=== PATIENT | female | born 1960 | race Caucasian/White ===

== ENCOUNTER 2016-10-14 10:17 | Outpatient (CLI) | payer BC | END 2016-10-14 10:18 | disposition home or self-care (01) | DX: Z12.31 Encounter for screening mammogram for malignant neoplasm of breast (principal) ==

== ENCOUNTER 2016-12-21 07:00 | Emergency (ER) | payer BC ==
[2016-12-21] MEDS ORDERED: ONDANSETRON 4 MG/2 ML VIAL IVP STA ×2 (07:40→10:55)
[2016-12-21] MEDS ORDERED: SODIUM CHLORIDE 0.9% 1,000 ML IV ONE (07:40)
[2016-12-21] MEDS ORDERED: diazePAM INJ 5 MG/ML SYRINGE IVP STA ×3 (07:40→10:55)
[2016-12-21] MEDS ORDERED: diazePAM INJ 5 MG/ML SYRINGE ONE ×3 (07:54→10:57)
[2016-12-21] MEDS ORDERED: ONDANSETRON 4 MG/2 ML VIAL ONE ×2 (07:55→10:58)
[2016-12-21] MEDS ORDERED: DEXAMETHASONE 10 MG/ML VIAL PO STA (09:05)
[2016-12-21] MEDS ORDERED: DEXAMETHASONE 10 MG/ML VIAL ONE ×2 (09:13→09:27)
[2016-12-21] MEDS ORDERED: CHERRY SYRUP 10 ML UDC PO ONE (09:13)
[2016-12-21] MEDS ORDERED: DEXAMETHASONE 10 MG/ML VIAL IVP STA (09:31)
[2016-12-21] MEDS ORDERED: MECLIZINE 12.5 MG TABLET PO STA (09:32)
[2016-12-21] MEDS ORDERED: MECLIZINE 12.5 MG TABLET PO ONE (10:08)
== END 2016-12-21 13:21 | disposition home or self-care (01) ==
DX: R42 Dizziness and giddiness (principal); R11.2 Nausea with vomiting, unspecified; E78.00 Pure hypercholesterolemia, unspecified; E03.9 Hypothyroidism, unspecified; I49.9 Cardiac arrhythmia, unspecified
CPT/HCPCS: 36415; 80053; 83690; 85025; 96361; 96374; 96375; 96376; 99284; A9270

== ENCOUNTER 2017-05-31 09:43 | Outpatient (CLI) | payer BC ==
--- NOTE | 2017-05-31 12:58 | XRAY Report ---
COMPLETE LUMBAR SPINE: 05/31/2017 CLINICAL INDICATION: Low back pain. FINDINGS: AP, lateral, oblique, coned-down views of the lumbar spine demonstrate mild degenerative d isc and facet disease. There is no evidence of fracture or subluxation. The bowel gas pattern is un remarkable. IMPRESSION: MILD DEGENERATIVE CHANGES. JOB #: [id number] EXT JOB #:[id number]
== END 2017-05-31 09:44 | disposition home or self-care (01) ==
LOC: DI.S 09:43
PROVIDERS: ATTEND Nurse Practitioner Family
DX: M51.36 Other intervertebral disc degeneration, lumbar region (principal)
CPT/HCPCS: 72110

== ENCOUNTER 2017-06-07 09:29 | Outpatient (CLI) | payer BC ==
--- NOTE | 2017-06-07 17:07 | XRAY Report ---
LEFT HIP AND PELVIS: 06/07/2017 FINDINGS: Pain. Frontal view of the hips and pelvis, and frog-leg lateral view of the left hip demonstrate mild osteo arthritis. There is no evidence of acute fracture. No radiopaque foreign body is seen in the soft t issues. IMPRESSION: MILD OSTEOARTHRITIS. JOB #: [id number] EXT JOB #:[id number]
== END 2017-06-07 09:30 | disposition home or self-care (01) ==
LOC: DI.S 09:29
PROVIDERS: ATTEND Nurse Practitioner Family
DX: M25.552 Pain in left hip (principal); M16.12 Unilateral primary osteoarthritis, left hip

== ENCOUNTER 2017-09-05 10:02 | Outpatient (CLI) | payer BC ==
[2017-09-05 18:38] LABS: BASOPHILS # (AUTO) 0.1 10^3/uL (0.0-0.1); BASOPHILS % (AUTO) 1.4 %; EOSINOPHILS # (AUTO) 0.2 10^3/uL (0.0-0.7); EOSINOPHILS % (AUTO) 4.3 %; HCT - HEMATOCRIT 42.7 % (37.0-47.0); HGB - HEMOGLOBIN 13.8 g/dL (12.0-16.0); LYMPHOCYTES # (AUTO) 1.5 10^3/uL (1.5-3.5); LYMPHOCYTES % (AUTO) 29.4 %; MEAN CORPUSCULAR HEMOGLOBIN 27.2 pg (27.0-31.0); MEAN CORPUSCULAR HGB CONC 32.3 g/dL (32.0-36.0); MEAN CORPUSCULAR VOLUME 84.3 fL (81.0-99.0); MEAN PLATELET VOLUME 9.2 fL (7.9-10.8); MONOCYTES # (AUTO) 0.4 10^3/uL (0.0-1.0); MONOCYTES % (AUTO) 7.7 %; NEUTROPHILS # (AUTO) 2.9 10^3/uL (1.5-6.6); NEUTROPHILS % (AUTO) 57.2 %; NUCLEATED RED BLOOD CELLS AUTO 0.1 /100WBC; RED BLOOD COUNT 5.07 10^6/uL (4.20-5.40); RED CELL DISTRIBUTION WIDTH 15.6 % (12.0-15.0); UNCORRECTED WHITE BLOOD COUNT 5.1 x10^3/uL; WHITE BLOOD COUNT 5.1 x10^3/uL (4.8-10.8)
[2017-09-05 18:43] LABS: ALBUMIN/GLOBULIN RATIO 1.4 (1.0-2.2); BILIRUBIN,TOTAL 0.6 mg/dL (0.2-1.0); BUN - BLOOD UREA NITROGEN 13 mg/dL (6-20); CALCIUM 9.3 mg/dL (8.5-10.3); CARBON DIOXIDE - CO2 27 mmol/L (21-32); CHLORIDE 106 mmol/L (101-111); CHOL/HDL RATIO 4.6 (<4.4); CHOLESTEROL 274 mg/dL; CREATININE 0.9 mg/dL (0.4-1.0); GFR - MDRD 65 (>89); GLUCOSE 93 mg/dL (70-100); HDL CHOLESTEROL 60 mg/dL; LDL/HDL RATIO 3.1 (<4.4); POTASSIUM 3.9 mmol/L (3.5-5.0); SODIUM 140 mmol/L (135-145); TOTAL PROTEIN 7.1 g/dL (6.7-8.2); TRIGLYCERIDES 144 mg/dL; VLDL CHOLESTEROL 29 mg/dL
== END 2017-09-05 10:03 ==
LOC: LAB.S 10:02
PROVIDERS: ATTEND Nurse Practitioner Family
DX: E03.9 Hypothyroidism, unspecified (principal); Z13.6 Encounter for screening for cardiovascular disorders; Z13.0 Encounter for screening for diseases of the blood and blood-forming organs and certain disorders involving the immune mechanism
CPT/HCPCS: 36415; 80053; 80061; 84443; 85025

== ENCOUNTER 2017-11-17 13:42 | Outpatient (CLI) | payer OTHER | END 2017-11-17 13:43 | disposition home or self-care (01) | LOC: LAB.F 13:42 | PROVIDERS: ATTEND Nurse Practitioner Family | DX: E03.9 Hypothyroidism, unspecified (principal) | CPT/HCPCS: 36415; 84443 ==

== ENCOUNTER 2018-04-07 13:56 | Outpatient (CLI) | payer OTHER ==
[2018-04-07 18:34] LABS: THYROID STIMULATING HORMONE 1.85 uIU/mL (0.34-5.60)
[2018-04-07 18:38] LABS: FREE T4 (FREE THYROXINE) 0.89 ng/dL (0.58-1.64)
[2018-04-08 10:46] LABS: HOMOCYSTEINE 10.2 umol/L (<10.4)
== END 2018-04-07 13:57 | disposition home or self-care (01) ==
LOC: LAB.F 13:56
PROVIDERS: ATTEND Naturopath
DX: Z13.6 Encounter for screening for cardiovascular disorders (principal); I49.9 Cardiac arrhythmia, unspecified; G44.89 Other headache syndrome; I99.8 Other disorder of circulatory system; E03.9 Hypothyroidism, unspecified
CPT/HCPCS: 36415; 81599; 83090; 84439; 84443; 84481; 84482; 86141

== ENCOUNTER 2018-05-18 10:37 | Outpatient (CLI) | payer OTHER | END 2018-05-18 10:38 | disposition home or self-care (01) | LOC: LAB.F 10:37 | PROVIDERS: ATTEND Internal Medicine | DX: E03.9 Hypothyroidism, unspecified (principal) | CPT/HCPCS: 36415; 84443 ==

== ENCOUNTER 2018-06-01 07:48 | Outpatient (CLI) | payer OTHER ==
[2018-06-01 11:06] LABS: BASOPHILS # (AUTO) 0.1 10^3/uL (0.0-0.1); BASOPHILS % (AUTO) 1.7 %; EOSINOPHILS # (AUTO) 0.2 10^3/uL (0.0-0.7); EOSINOPHILS % (AUTO) 5.4 %; HGB - HEMOGLOBIN 13.5 g/dL (12.0-16.0); LYMPHOCYTES # (AUTO) 1.7 10^3/uL (1.5-3.5); MEAN CORPUSCULAR HEMOGLOBIN 27.1 pg (27.0-31.0); MEAN CORPUSCULAR HGB CONC 32.8 g/dL (32.0-36.0); MEAN CORPUSCULAR VOLUME 82.5 fL (81.0-99.0); MEAN PLATELET VOLUME 9.6 fL (7.9-10.8); MONOCYTES # (AUTO) 0.4 10^3/uL (0.0-1.0); MONOCYTES % (AUTO) 7.6 %; NEUTROPHILS # (AUTO) 2.2 10^3/uL (1.5-6.6); NEUTROPHILS % (AUTO) 48.3 %; PLT - PLATELET COUNT 196 10^3/uL (130-450); RED CELL DISTRIBUTION WIDTH 16.6 % (12.0-15.0); WHITE BLOOD COUNT 4.6 x10^3/uL (4.8-10.8)
[2018-06-01 12:00] LABS: HB2 TOTAL 14.5 g/dL; HEMOGLOBIN A1C 0.52 g/dL; HEMOGLOBIN A1C % 5.4 % (4.6-6.2)
== END 2018-06-01 07:49 | disposition home or self-care (01) ==
LOC: LAB.F 07:48
PROVIDERS: ATTEND Nurse Practitioner Family
DX: R42 Dizziness and giddiness (principal)
CPT/HCPCS: 36415; 82728; 82947; 83036; 85025

== ENCOUNTER 2018-08-24 08:21 | Outpatient (CLI) | payer OTHER ==
[2018-08-24 11:04] LABS: ALBUMIN 3.9 g/dL (3.2-5.5); ALBUMIN/GLOBULIN RATIO 1.4 (1.0-2.2); ALKALINE PHOSPHATASE 57 IU/L (42-121); ALT ALANINE AMINOTRANSFERASE 23 IU/L (10-60); AST ASPARTATE AMINOTRANSFERASE 23 IU/L (10-42); BILIRUBIN,TOTAL 0.7 mg/dL (0.2-1.0); BUN - BLOOD UREA NITROGEN 10 mg/dL (6-20); CALCIUM 8.9 mg/dL (8.5-10.3); CARBON DIOXIDE - CO2 28 mmol/L (21-32); CHLORIDE 104 mmol/L (101-111); CHOL/HDL RATIO 4.4 (<4.4); CHOLESTEROL 215 mg/dL; CREATININE 0.9 mg/dL (0.4-1.0); GFR - MDRD 64 (>89); GLUCOSE 99 mg/dL (70-100); HDL CHOLESTEROL 49 mg/dL; LDL CHOLESTEROL,CALCULATED 132 mg/dL; LDL/HDL RATIO 2.7 (<4.4); SODIUM 139 mmol/L (135-145); TOTAL PROTEIN 6.6 g/dL (6.7-8.2); VLDL CHOLESTEROL 34 mg/dL
[2018-08-24 11:20] LABS: THYROID STIMULATING HORMONE 2.79 uIU/mL (0.34-5.60)
[2018-08-24 11:22] LABS: FREE T4 (FREE THYROXINE) 0.89 ng/dL (0.58-1.64)
== END 2018-08-24 08:22 | disposition home or self-care (01) ==
LOC: LAB.F 08:21
PROVIDERS: ATTEND Nurse Practitioner Family
DX: F41.9 Anxiety disorder, unspecified (principal); Z13.6 Encounter for screening for cardiovascular disorders; E03.9 Hypothyroidism, unspecified
CPT/HCPCS: 36415; 80053; 80061; 83721; 84439; 84443

== ENCOUNTER 2018-09-18 11:07 | Outpatient (CLI) | payer OTHER ==
--- NOTE | 2018-09-19 09:41 | Mammography Report ---
Reason: SCREENING MAMMO Procedure Date: 09/18/2018 Accession Number: [id number] / [id number] Procedure: REYNOLD - Screening Mammo w/Jeffery CPT Code: FULL RESULT: EXAM: Screening Mammo w/Jeffery DATE: 09/18/2018 11:48 AM CLINICAL HISTORY: Screening encounter. History of nulliparity. TECHNIQUE: Bilateral CC and MLO views were obtained. COMPARISON: 10/14/2016. FINDINGS: The breasts demonstrate scattered fibroglandular densities bilaterally. No suspicious masses, clustered microcalcifications, or regions of architectural distortion are identified. IMPRESSION: Benign findings RECOMMENDATION: Routine annual screening unless otherwise clinically indicated. BIRADS CATEGORY 2: Benign findings STANDARD QUALIFYING STATEMENTS: 1. This examination was not reviewed with the aid of Computer-Aided Detection (CAD). 2. A negative or benign imaging report should not preclude biopsy if clinically suspicious findings are present. 3. Dense breasts may obscure an underlying neoplasm. 4. This examination was reviewed with the aid of 3D breast imaging (tomosynthesis).
== END 2018-09-18 11:08 | disposition home or self-care (01) ==
LOC: DI 11:07
DX: Z12.31 Encounter for screening mammogram for malignant neoplasm of breast (principal)
CPT/HCPCS: 77063; 77067

== ENCOUNTER 2018-12-25 02:03 | Outpatient (CLI) | payer OTHER | END 2018-12-25 02:04 | disposition critical access hospital (66) | LOC: EMS 02:03 | PROVIDERS: ATTEND Surgery | DX: R00.2 Palpitations (principal); R42 Dizziness and giddiness | CPT/HCPCS: A0425; A0427 ==

== ENCOUNTER 2018-12-25 02:36 | Emergency (ER) | payer OTHER ==
[2018-12-25] MEDS ORDERED: METOPROLOL 5 MG/5 ML VIAL IVP STA (02:48)
[2018-12-25 03:01] LABS: BASOPHILS # (AUTO) 0.1 10^3/uL (0.0-0.1); BASOPHILS % (AUTO) 1.6 %; EOSINOPHILS # (AUTO) 0.2 10^3/uL (0.0-0.7); EOSINOPHILS % (AUTO) 3.8 %; HGB - HEMOGLOBIN 13.4 g/dL (12.0-16.0); LYMPHOCYTES # (AUTO) 1.7 10^3/uL (1.5-3.5); LYMPHOCYTES % (AUTO) 29.7 %; MEAN CORPUSCULAR HEMOGLOBIN 26.8 pg (27.0-31.0); MEAN CORPUSCULAR HGB CONC 32.6 g/dL (32.0-36.0); MEAN CORPUSCULAR VOLUME 82.4 fL (81.0-99.0); MEAN PLATELET VOLUME 8.6 fL (7.9-10.8); MONOCYTES # (AUTO) 0.4 10^3/uL (0.0-1.0); MONOCYTES % (AUTO) 6.2 %; NEUTROPHILS # (AUTO) 3.3 10^3/uL (1.5-6.6); NEUTROPHILS % (AUTO) 58.7 %; PLT - PLATELET COUNT 203 10^3/uL (130-450); RED BLOOD COUNT 5.01 10^6/uL (4.20-5.40); RED CELL DISTRIBUTION WIDTH 15.7 % (12.0-15.0); WHITE BLOOD COUNT 5.6 x10^3/uL (4.8-10.8)
[2018-12-25] MEDS ORDERED: PROPOFOL 200 MG/20 ML VIAL IVP ONE (03:05)
[2018-12-25] MEDS ORDERED: MIDAZOLAM 2 MG/2 ML VIAL ONE (03:05)
[2018-12-25] MEDS ORDERED: AMIODARONE 150 MG/100 ML 100 ML IV ONE ×2 (03:05→03:08)
[2018-12-25 03:14] LABS: ALBUMIN 3.9 g/dL (3.2-5.5); ALBUMIN/GLOBULIN RATIO 1.4 (1.0-2.2); BILIRUBIN,TOTAL 0.5 mg/dL (0.2-1.0); CALCIUM 9.2 mg/dL (8.5-10.3); CREATININE 0.7 mg/dL (0.4-1.0); TOTAL PROTEIN 6.7 g/dL (6.7-8.2)
--- NOTE | 2018-12-25 03:34 | ED Physician Documentation ---
History of Present Illness - Stated complaint Stated Complaint: PALPATATIONS - Chief complaint Chief Complaint: Cardiac - History obtained from History obtained from: Patient - History of Present Illness Timing: Prior to arrival - Additonal information Additional information: The patient is a 58-year-old female who presents with palpitations that started just prior to arrival. She reports associated lightheadedness and slight dyspnea. She denies chest pain. She has a history of paroxysmal atrial fibrillation and atrial flutter. She reports that atrial flutter has been converted in the past with amiodarone. Her previous episode of atrial fibrillation requiring electrical cardioversion. She is not currently on any antidysrhythmic therapy or anticoagulant medication. She took 1 baby aspirin prior to arrival. She denies the use of coffee, nasreen, alcohol, or other drugs. Review of Systems Constitutional: reports: Other (Lightheaded and dizzy.). denies: Fever Eyes: denies: Decreased vision Ears: denies: Tinnitus/ringing Nose: denies: Congestion Throat: denies: Sore throat Cardiac: reports: Palpitations. denies: Chest pain / pressure Respiratory: reports: Dyspnea. denies: Cough GI: denies: Abdominal Pain, Nausea, Vomiting : denies: Dysuria Skin: denies: Rash Musculoskeletal: denies: Back pain, Extremity swelling Neurologic: denies: Focal weakness, Numbness, Headache PD PAST MEDICAL HISTORY - Past Medical History Cardiovascular: High cholesterol, Arrhythmia, Other Respiratory: None Endocrine/Autoimmune: HyPOthyroidism GI: None LEGAL DOCUMENT SPECIALIST: None : None HEENT: None Psych: None Musculoskeletal: None Derm: Eczema - Past Surgical History Past Surgical History: Yes HEENT: Tonsil/Adenoidectomy - Present Medications Home Medications: Ambulatory Orders Medication Instructions Recorded Confirmed Levothyroxine [Synthroid] 75 07/27/13 07/27/13 Dexamethasone [Decadron] 4 mg PO DAILY #5 tablet 12/21/16 Meclizine [Antivert] 25 mg PO Q6H PRN #30 tablet 12/21/16 Ondansetron Odt [Zofran] 4 mg TL Q6H PRN #15 tablet 12/21/16 diazePAM [Diazepam] 5 mg PO TID PRN #20 tablet 12/21/16 - Allergies Allergies/Adverse Reactions: Allergies Allergy/AdvReac Type Severity Reaction Status Date / Time No Known Drug Allergies Allergy Verified 12/21/16 07:13 - Social History Does the pt smoke?: No Smoking Status: Never smoker Does the pt drink ETOH?: No Does the pt have substance abuse?: No - Immunizations Immunizations are current?: Yes - POLST Patient has POLST: No PD ED PE NORMAL - Vitals Vital signs reviewed: Yes (tachycardic) - General General: Alert and oriented X 3, Well developed/nourished - HEENT HEENT: Atraumatic, EOMI, Pharynx benign - Neck Neck: No adenopathy, No JVD - Cardiac Cardiac: No murmur, Other (Rapid rate, regular rhythm.) - Respiratory Respiratory: Clear bilaterally - Abdomen Abdomen: Soft, Non tender - Back Back: No CVA TTP - Derm Derm: No rash - Extremities Extremities: No edema, No calf tenderness / cord - Neuro Neuro: Alert and oriented X 3, No motor deficit, Normal speech Results - Vitals Vitals: Oxygen O2 Source Room air Oxygen Flow Rate 10 - EKG (time done) 02:40 Rate: Rate (enter#) (138) Rhythm: Atrial flutter (with 2:1 block) [place]: Normal Computer interpretation: Agree with computer 04:49 Rate: Rate (enter#) (87) Rhythm: NSR [place]: Normal Intervals: Normal [place] QRS: Normal Ischemia: T wave inversion (in lead III, with T-wave flattening in aVF.) Compare to prior EKG: Changed from prior EKG (No longer in atrial flutter.) Computer interpretation: Agree with computer - Labs Labs: Laboratory Tests 12/25/18 12/25/18 12/25/18 02:54 02:54 02:54 WBC 5.6 RBC 5.01 Hgb 13.4 Hct 41.3 MCV 82.4 MCH 26.8 L MCHC 32.6 RDW 15.7 H Plt Count 203 MPV 8.6 Neut # (Auto) 3.3 Lymph # (Auto) 1.7 [place] # (Auto) 0.4 Eos # (Auto) 0.2 Baso # (Auto) 0.1 Absolute Nucleated RBC 0.00 Nucleated RBC % 0.0 Sodium 139 Potassium 3.4 L Chloride 106 Carbon Dioxide 22 Anion Gap 11.0 BUN 16 Creatinine 0.7 Estimated GFR (MDRD) 86 L Glucose 113 H Calcium 9.2 Total Bilirubin 0.5 AST 79 H ALT 72 H Alkaline Phosphatase 81 Troponin I < 0.04 Total Protein 6.7 Albumin 3.9 Globulin 2.8 Albumin/Globulin Ratio 1.4 Lipase 32 Procedures - Cardioversion 1 Time of attempt: 04:42 (Duration of procedural sedation was approximately 15 minutes.) Indication: Tachyarrhythmia Risks, benefits, alternatives explained to: Pt Prep: IV, O2, radiation monitor, Pulse ox, Airway equip Meds: Propofol (60 mg), Versed (1 mg) CS via: Pads, Anterolateral Sync: Biphasic, 50j Post cardioversion rhythm: NSR Performed by: ED MD MEDICAL DECISION MAKING - ED course Complexity details: reviewed results, re-evaluated patient, considered differential, d/w patient, d/w family ED course: The patient's presentation is significant for atrial flutter, initially with 2:1 block. Shortly after arrival ventricular response became one-to-one, with a ventricular rate of 240. Paddles were placed on the patient's chest immediately upon arrival. Metoprolol 5 mg is administered IV, without response. Amiodarone 150 mg is administered IV. Her atrial flutter return to 2:1 block, but did not convert. Under procedural sedation, she was cardioverted at 70 J. Cardioversion was successful on the first attempt, and she remained in normal sinus rhythm thereafter. After a period of observation, and normal laboratory results, she is being discharged with instructions to follow up with her group care worker. I discussed with her and her potentially worrisome signs or symptoms that should prompt reevaluation in the emergency department. Departure - Departure Disposition: 01 Home, Self Care Clinical Impression: Atrial flutter with rapid ventricular response Condition: Stable Instructions: ED Paroxysmal Atrial Flutter Follow-Up: Anahi Koroma ARNP [Credentialed Staff Provider] - Comments: Follow-up with your primary physician or group care worker. Call to schedule an appointment. Return to the emergency department if you develop recurrent tachydysrhythmia, or otherwise worsening symptoms. Forms: Activity restrictions Discharge Date/Time: 12/25/18 05:40
[2018-12-25] MEDS ORDERED: PROPOFOL 200 MG/20 ML VIAL IVP STA (04:16)
[2018-12-25] MEDS ORDERED: MIDAZOLAM 2 MG/2 ML VIAL IVP STA (04:17)
[2018-12-25 05:33] VITALS: BP 112/79
== END 2018-12-25 05:40 | disposition home or self-care (01) ==
LOC: EDUNIT# → ED 02:36
DX: I48.92 Unspecified atrial flutter (principal)
CPT/HCPCS: 36415; 80053; 83690; 84484; 85025; 92960; 93005; 94770; 96374; 96375; 99152; 99284; J0282

== ENCOUNTER 2019-03-26 08:00 | Outpatient (CLI) | payer OTHER ==
[2019-03-26 17:11] LABS: MEAN CORPUSCULAR HEMOGLOBIN 26.4 pg (27.0-31.0); MEAN CORPUSCULAR VOLUME 82.7 fL (81.0-99.0); MEAN PLATELET VOLUME 9.5 fL (7.9-10.8); RED BLOOD COUNT 4.9 10^6/uL (4.20-5.40); RED CELL DISTRIBUTION WIDTH 15.6 % (12.0-15.0)
[2019-03-26 17:15] LABS: CALCIUM 9.2 mg/dL (8.5-10.3); CREATININE 0.8 mg/dL (0.4-1.0)
== END 2019-03-26 23:59 | disposition home or self-care (01) ==
LOC: LAB.S 08:00
PROVIDERS: ATTEND Internal Medicine Clinical Cardiac Electrophysiology
DX: I48.92 Unspecified atrial flutter (principal)
CPT/HCPCS: 36415; 80048; 85027

== ENCOUNTER 2019-05-04 08:45 | Outpatient (CLI) | payer OTHER ==
[2019-05-04 18:33] LABS: BASOPHILS # (AUTO) 0.1 10^3/uL (0.0-0.1); BASOPHILS % (AUTO) 1.6 %; EOSINOPHILS # (AUTO) 0.3 10^3/uL (0.0-0.7); EOSINOPHILS % (AUTO) 7.8 %; LYMPHOCYTES # (AUTO) 1.5 10^3/uL (1.5-3.5); LYMPHOCYTES % (AUTO) 33.8 %; MEAN CORPUSCULAR HEMOGLOBIN 25.8 pg (27.0-31.0); MEAN CORPUSCULAR HGB CONC 29.9 g/dL (32.0-36.0); MEAN CORPUSCULAR VOLUME 86.5 fL (81.0-99.0); MEAN PLATELET VOLUME 11.3 fL (7.9-10.8); MONOCYTES # (AUTO) 0.3 10^3/uL (0.0-1.0); MONOCYTES % (AUTO) 7.4 %; NEUTROPHILS # (AUTO) 2.1 10^3/uL (1.5-6.6); NEUTROPHILS % (AUTO) 49.2 %; PLT - PLATELET COUNT 201 10^3/uL (130-450); RED BLOOD COUNT 5.03 10^6/uL (4.20-5.40); RED CELL DISTRIBUTION WIDTH 16.1 % (12.0-15.0); WHITE BLOOD COUNT 4.4 x10^3/uL (4.8-10.8)
[2019-05-04 19:08] LABS: ALBUMIN 4.1 g/dL (3.2-5.5); ALBUMIN/GLOBULIN RATIO 1.5 (1.0-2.2); BILIRUBIN,TOTAL 0.7 mg/dL (0.2-1.0); CALCIUM 9.2 mg/dL (8.5-10.3); CREATININE 0.8 mg/dL (0.4-1.0); TOTAL PROTEIN 6.8 g/dL (6.7-8.2)
[2019-05-04 19:11] LABS: THYROID STIMULATING HORMONE 2.88 uIU/mL (0.34-5.60)
[2019-05-04 19:13] LABS: FREE T4 (FREE THYROXINE) 0.9 ng/dL (0.58-1.64)
[2019-05-04 19:58] LABS: HB2 TOTAL 13.9 g/dL; HEMOGLOBIN A1C 0.53 g/dL; HEMOGLOBIN A1C % 5.6 % (4.6-6.2)
== END 2019-05-04 08:46 | disposition home or self-care (01) ==
LOC: LAB.S 08:45
PROVIDERS: ATTEND Naturopath
DX: R73.01 Impaired fasting glucose (principal); E03.9 Hypothyroidism, unspecified
CPT/HCPCS: 36415; 80053; 81599; 82627; 83036; 83525; 84439; 84443; 84481; 85025

== ENCOUNTER 2019-11-23 08:38 | Outpatient (CLI) | payer OTHER ==
--- NOTE | 2019-11-27 10:34 | Mammography Report ---
Reason: ROUTINE MAMMO Procedure Date: 11/23/2019 Accession Number: [id number] / [id number] Procedure: REYNOLD - Screening Mammo w/Jeffery CPT Code: Final Report FULL RESULT: EXAM: Screening Mammo w/Jeffery DATE: 11/23/2019 9:13 AM CLINICAL HISTORY: Screening encounter. History of nulliparity. TECHNIQUE: (B) - Bilateral CC and MLO views were obtained. COMPARISON: 09/18/2018 and 10/14/2016. PARENCHYMAL PATTERN: (A) - The breast(s) demonstrate(s) scattered fibroglandular densities. FINDINGS: There are no suspicious masses, calcifications, or areas of distortion. IMPRESSION: Negative examination. BI-RADS category 1. RECOMMENDATION: (ANNUAL) - Recommend routine annual screening mammography. BI-RADS CATEGORY: (1) - Negative. STANDARD QUALIFYING STATEMENTS: 1. This examination was not reviewed with the aid of Computer-Aided Detection (CAD). 2. A negative or benign imaging report should not preclude biopsy if clinically suspicious findings are present. 3. Dense breasts may obscure an underlying neoplasm. 4. This examination was reviewed with the aid of 3D breast imaging (tomosynthesis).
== END 2019-11-23 08:39 | disposition home or self-care (01) ==
LOC: DI 08:38
PROVIDERS: ATTEND Physician Assistant Medical
DX: Z12.31 Encounter for screening mammogram for malignant neoplasm of breast (principal)
CPT/HCPCS: 77063; 77067

== ENCOUNTER 2019-11-23 08:41 | Outpatient (CLI) | payer OTHER ==
--- NOTE | 2019-11-27 12:26 | DEXA Report ---
Reason: POSTMENOPAUSAL Procedure Date: 11/23/2019 Accession Number: [id number] / [id number] Procedure: DEX - Dexa Spine and/or Hip CPT Code: Final Report FULL RESULT: EXAM: Dexa Spine and/or Hip DATE: 11/23/2019 9:26 AM CLINICAL HISTORY: POSTMENOPAUSAL TECHNIQUE: Dual energy x-ray absorptiometry (DXA) was performed on a [employer]ue[employer] System. Regions measured are the AP Spine, femoral neck, and if needed forearm. COMPARISON: None. In accordance with the International Society for Clinical Densitometry (ISCD) guidelines, data from previous exams may be reanalyzed using current recommendations and techniques. This is done to allow a more accurate basis for comparison with the current study. FINDINGS: The data for the lumbar spine is as follows: BMD (g/cm/cm) T-SCORE Z-SCORE REGION L1 0.789 -2.8 -2.6 L2 0.877 -2.7 -2.5 L3 0.967 -1.9 -1.8 L4 0.916 -2.4 -2.2 TOTAL 0.894 -2.4 -2.2 NOTE: All evaluable vertebrae are used for classification The data for the hip is as follows: BMD (g/cm/cm) T-SCORE Z-SCORE REGION Neck 0.734 -2.2 -1.6 TOTAL 0.810 -1.6 -1.4 NOTE: The femoral neck or total proximal femur, whichever is lowest, is used for classification. IMPRESSION: THE WHO CLASSIFICATION BASED ON THE INTERNATIONAL REFERENCE STANDARD IS OSTEOPENIA. THE FRACTURE RISK IS INCREASED. RECOMMENDATION: Patients with diagnosis of osteoporosis or osteopenia should have regular bone mineral density assessment. For those eligible for Medicare, routine testing is allowed once every 2 years. Testing frequency can be increased for patients who have rapidly progressing disease or for those who are receiving medical therapy to restore bone mass. COMMENT: World Health Organization (WHO) definitions for osteoporosis and osteopenia: NORMAL BMD: T-score at -1.0 or higher, fracture risk is low OSTEOPENIA BMD: T-score between -1.0 and -2.5, fracture risk is increased. OSTEOPOROSIS BMD: T-score at -2.5 or lower, fracture risk is high. National Osteoporosis Foundation recommends: 1. Obtain adequate dietary calcium (at least 1200 mg per day) and vitamin D (400-800 international units per day). 2. Participate, as appropriate, in regular weightbearing and muscle-strengthening exercise. 3. Avoid tobacco use and reduce alcohol and caffeine intake. 4. For more detailed information see the website at www.NOF.org.
== END 2019-11-23 08:42 | disposition home or self-care (01) ==
LOC: DI 08:41
PROVIDERS: ATTEND Physician Assistant Medical
DX: M85.89 Other specified disorders of bone density and structure, multiple sites (principal); Z78.0 Asymptomatic menopausal state
CPT/HCPCS: 77080

== ENCOUNTER 2020-04-09 13:30 | Outpatient (CLI) | payer OTHER | END 2020-04-09 23:59 | disposition home or self-care (01) | LOC: LAB 13:30 | PROVIDERS: ATTEND Registered Nurse | DX: R05 Cough (principal); Z20.828 Contact with and (suspected) exposure to other viral communicable diseases | CPT/HCPCS: 81599 ==

== ENCOUNTER 2020-08-29 10:16 | Outpatient (CLI) | payer OTHER ==
[2020-08-29 15:10] LABS: BASOPHILS # (AUTO) 0.1 10^3/uL (0.0-0.1); BASOPHILS % (AUTO) 1.5 %; EOSINOPHILS # (AUTO) 0.2 10^3/uL (0.0-0.7); EOSINOPHILS % (AUTO) 4.8 %; HGB - HEMOGLOBIN 13.7 g/dL (12.0-16.0); LYMPHOCYTES # (AUTO) 1.5 10^3/uL (1.5-3.5); MEAN CORPUSCULAR HEMOGLOBIN 26.9 pg (27.0-31.0); MEAN CORPUSCULAR HGB CONC 31.1 g/dL (32.0-36.0); MEAN CORPUSCULAR VOLUME 86.6 fL (81.0-99.0); MEAN PLATELET VOLUME 11.3 fL (7.9-10.8); MONOCYTES # (AUTO) 0.2 10^3/uL (0.0-1.0); MONOCYTES % (AUTO) 6.1 %; NEUTROPHILS % (AUTO) 50.6 %; PLT - PLATELET COUNT 215 10^3/uL (130-450); RED BLOOD COUNT 5.09 10^6/uL (4.20-5.40); WHITE BLOOD COUNT 3.9 x10^3/uL (4.8-10.8)
[2020-08-29 15:35] LABS: ALBUMIN 4.3 g/dL (3.2-5.5); ALBUMIN/GLOBULIN RATIO 1.6 (1.0-2.2); ALKALINE PHOSPHATASE 63 IU/L (42-121); ALT ALANINE AMINOTRANSFERASE 21 IU/L (10-60); AST ASPARTATE AMINOTRANSFERASE 23 IU/L (10-42); BILIRUBIN,TOTAL 0.7 mg/dL (0.2-1.0); BUN - BLOOD UREA NITROGEN 11 mg/dL (6-20); CALCIUM 9.5 mg/dL (8.5-10.3); CARBON DIOXIDE - CO2 26 mmol/L (21-32); CHLORIDE 103 mmol/L (101-111); CHOL/HDL RATIO 5.5 (<4.4); CHOLESTEROL 293 mg/dL; CREATININE 0.8 mg/dL (0.4-1.0); GLUCOSE 101 mg/dL (70-100); HDL CHOLESTEROL 53 mg/dL; LDL CHOLESTEROL,CALCULATED 195 mg/dL; LDL/HDL RATIO 3.7 (<4.4); SODIUM 143 mmol/L (135-145); VLDL CHOLESTEROL 45 mg/dL
[2020-08-30 13:21] LABS: HEPATITIS C ANTIBODY NON-REACTIVE (NON-REACTIVE)
== END 2020-08-29 10:17 | disposition home or self-care (01) ==
LOC: LAB.S 10:16
PROVIDERS: ATTEND Registered Nurse
DX: R05 Cough (principal); R73.01 Impaired fasting glucose; I48.0 Paroxysmal atrial fibrillation; F41.9 Anxiety disorder, unspecified; E03.9 Hypothyroidism, unspecified; Z78.0 Asymptomatic menopausal state; Z13.0 Encounter for screening for diseases of the blood and blood-forming organs and certain disorders involving the immune mechanism; Z11.59 Encounter for screening for other viral diseases
CPT/HCPCS: 36415; 80053; 80061; 82306; 83721; 84443; 85025; 86803

== ENCOUNTER 2021-02-23 17:24 | Outpatient (CLI) | payer OTHER ==
[2021-02-23 20:52] LABS: RHEUMATOID FACTOR NEGATIVE (Negative)
[2021-02-23 21:08] LABS: T4 (THYROXINE) 8.45 ug/dL (6.09-12.23)
[2021-02-23 21:12] LABS: THYROID STIMULATING HORMONE 2.29 uIU/mL (0.34-5.60)
== END 2021-02-23 17:25 | disposition home or self-care (01) ==
LOC: LAB.S 17:24
PROVIDERS: ATTEND Registered Nurse
DX: E03.9 Hypothyroidism, unspecified (principal); R53.83 Other fatigue; E78.5 Hyperlipidemia, unspecified; F41.9 Anxiety disorder, unspecified; I48.92 Unspecified atrial flutter
CPT/HCPCS: 36415; 84436; 84443; 84480; 86140; 86430

== ENCOUNTER 2021-03-05 15:10 | Outpatient (CLI) | payer OTHER ==
[2021-03-05 20:39] LABS: FREE T3 3.97 pg/mL (2.5-3.9)
[2021-03-05 20:40] LABS: FREE T4 (FREE THYROXINE) 0.96 ng/dL (0.58-1.64)
[2021-03-11 23:42] LABS: ANA PATTERN Cytoplasmic; ANA SCREEN POSITIVE (NEGATIVE)
== END 2021-03-05 15:11 | disposition home or self-care (01) ==
LOC: LAB.S 15:10
PROVIDERS: ATTEND Naturopath
DX: Z13.29 Encounter for screening for other suspected endocrine disorder (principal); Z13.6 Encounter for screening for cardiovascular disorders; M79.18 Myalgia, other site; R22.30 Localized swelling, mass and lump, unspecified upper limb
CPT/HCPCS: 36415; 84439; 84481; 84482; 86038; 86141

== ENCOUNTER 2021-12-10 12:26 | Outpatient (CLI) | payer OTHER ==
[2021-12-10 15:12] LABS: BASOPHILS # (AUTO) 0.1 10^3/uL (0.0-0.1); BASOPHILS % (AUTO) 1.2 %; EOSINOPHILS # (AUTO) 0.4 10^3/uL (0.0-0.7); EOSINOPHILS % (AUTO) 7.2 %; HCT - HEMATOCRIT 43.8 % (37.0-47.0); HGB - HEMOGLOBIN 13.6 g/dL (12.0-16.0); LYMPHOCYTES # (AUTO) 1.8 10^3/uL (1.5-3.5); MEAN CORPUSCULAR HEMOGLOBIN 26.5 pg (27.0-31.0); MEAN CORPUSCULAR HGB CONC 31.1 g/dL (32.0-36.0); MEAN CORPUSCULAR VOLUME 85.4 fL (81.0-99.0); MEAN PLATELET VOLUME 10.8 fL (7.9-10.8); MONOCYTES # (AUTO) 0.4 10^3/uL (0.0-1.0); MONOCYTES % (AUTO) 7.6 %; NEUTROPHILS # (AUTO) 2.3 10^3/uL (1.5-6.6); NEUTROPHILS % (AUTO) 47.8 %; PLT - PLATELET COUNT 234 10^3/uL (130-450); RED BLOOD COUNT 5.13 10^6/uL (4.20-5.40); RED CELL DISTRIBUTION WIDTH 15.3 % (12.0-15.0); WHITE BLOOD COUNT 4.9 x10^3/uL (4.8-10.8)
[2021-12-10 15:39] LABS: THYROID STIMULATING HORMONE 4.22 uIU/mL (0.34-5.60)
[2021-12-10 15:40] LABS: ALBUMIN 4.2 g/dL (3.2-5.5); ALBUMIN/GLOBULIN RATIO 1.4 (1.0-2.2); ALKALINE PHOSPHATASE 68 IU/L (42-121); ALT ALANINE AMINOTRANSFERASE 36 IU/L (10-60); AST ASPARTATE AMINOTRANSFERASE 27 IU/L (10-42); BILIRUBIN,TOTAL 0.6 mg/dL (0.2-1.0); BUN - BLOOD UREA NITROGEN 13 mg/dL (6-20); CALCIUM 9.4 mg/dL (8.5-10.3); CARBON DIOXIDE - CO2 28 mmol/L (21-32); CHLORIDE 102 mmol/L (101-111); CHOL/HDL RATIO 6.1 (<4.4); CHOLESTEROL 299 mg/dL; CREATININE 0.9 mg/dL (0.4-1.0); GFR - MDRD 64 (>89); GLUCOSE 101 mg/dL (70-100); HDL CHOLESTEROL 49 mg/dL; LDL CHOLESTEROL,CALCULATED 215 mg/dL; LDL/HDL RATIO 4.4 (<4.4); SODIUM 139 mmol/L (135-145); TOTAL PROTEIN 7.3 g/dL (6.7-8.2); TRIGLYCERIDES 174 mg/dL; VLDL CHOLESTEROL 35 mg/dL
== END 2021-12-10 12:27 | disposition home or self-care (01) ==
LOC: LAB.S 12:26
PROVIDERS: ATTEND Registered Nurse
DX: E78.5 Hyperlipidemia, unspecified (principal); E03.9 Hypothyroidism, unspecified; R53.83 Other fatigue
CPT/HCPCS: 36415; 80053; 80061; 83721; 84443; 85025

== ENCOUNTER 2022-02-01 15:08 | Outpatient (CLI) | payer OTHER ==
--- NOTE | 2022-02-02 16:14 | Mammography Report ---
BILATERAL DIGITAL SCREENING MAMMOGRAM 3D/2D: 02/01/2022 CLINICAL: Routine screening. Comparison is made to exams dated: 11/23/2019 mammogram, 09/18/2018 mammogram, and 10/14/2016 mammogram - [facility]. There are scattered fibroglandular elements in both breasts. No significant masses, calcifications, or other findings are seen in either breast. There has been no significant interval change. IMPRESSION: NEGATIVE There is no mammographic evidence of malignancy. A 1 year screening mammogram is recommended. This exam was interpreted at Station ID: [id number]. NOTE: For mammograms, a report in lay terms will be sent to the patient. Approximately 15% of breast malignancies will not be visualized mammographically. In the management of a palpable breast mass, a negative mammogram must not discourage biopsy of a clinically suspicious lesion. Electronically Signed By: Farrah salazar/sherry:02/02/2022 08:49:54 ACR BI-RADS Category 1: Negative 3341F PARENCHYMAL PATTERN: (A) - The breast(s) demonstrate(s) scattered fibroglandular densities. BI-RADS CATEGORY: (1) - 1 RECOMMENDATION: (ANNUAL) - Recommend routine annual screening mammography. [id number] 1 year screening LATERALITY: (B)
== END 2022-02-01 15:09 | disposition home or self-care (01) ==
LOC: DI.S 15:08
PROVIDERS: ATTEND Registered Nurse
DX: Z12.31 Encounter for screening mammogram for malignant neoplasm of breast (principal)

== ENCOUNTER 2022-12-07 02:09 | Outpatient (CLI) | payer OTHER | END 2022-12-07 23:59 | disposition critical access hospital (66) | LOC: EMS 02:09 | DX: R00.2 Palpitations (principal); I47.1 Supraventricular tachycardia | CPT/HCPCS: A0425; A0427 ==

== ENCOUNTER 2022-12-07 02:42 | Emergency (ER) | payer OTHER ==
--- NOTE | 2022-12-07 02:56 | ED Physician Documentation ---
History of Present Illness - Stated complaint Stated Complaint: RAPID HR, PALPITATIONS - Chief complaint Chief Complaint: Cardiac - History obtained from History obtained from: Patient - Additonal information Additional information: 62yF with pmh paroxysmal afib s/p ablation 3 years ago at [facility], also with hypothyroidism, p/w palpitations around 1am prompting her to check HR. Upon seeing it in 240s she took 30mg po cardizem and called ems. denies cp, soa. on scene she was found to be in svt but on repeat ekg it had converted to afib. denies cp, soa, fever. felt normal yesterday. does state she has had palpitations on and off in the past and was found to be in bigeminy via holter monitoring, and takes cardizem 30 prn for palpitations. Review of Systems Constitutional: denies: Fever Cardiac: reports: Palpitations. denies: Chest pain / pressure Respiratory: denies: Dyspnea PD PAST MEDICAL HISTORY - Past Medical History Cardiovascular: High cholesterol, Arrhythmia, Other Respiratory: None Endocrine/Autoimmune: HyPOthyroidism GI: None SECURITY ANALYST: None : None HEENT: None Psych: None Musculoskeletal: None Derm: Eczema - Past Surgical History Past Surgical History: Yes HEENT: Tonsil/Adenoidectomy - Present Medications Home Medications: Ambulatory Orders Medication Instructions Recorded Confirmed Levothyroxine [Synthroid] 50 07/27/13 07/27/13 diltiaZEM [Cardizem] 30 mg PO ONCE PRN 12/07/22 12/07/22 - Allergies Allergies/Adverse Reactions: Allergies Allergy/AdvReac Type Severity Reaction Status Date / Time No Known Drug Allergies Allergy Verified 12/07/22 02:52 - Social History Does the pt smoke?: No Smoking Status: Never smoker Does the pt drink ETOH?: No Does the pt have substance abuse?: No - Immunizations Immunizations are current?: Yes - POLST Patient has POLST: No PD ED PE NORMAL - Vitals Vital signs reviewed: Yes - General General: Alert and oriented X 3, No acute distress, Well developed/nourished - HEENT HEENT: Atraumatic, PERRL, EOMI - Neck Neck: Supple, no meningeal sign - Cardiac Cardiac: Other (tachycardic rate, irregular rhythm) - Respiratory Respiratory: No respiratory distress, Clear bilaterally - Abdomen Abdomen: Non tender, Non distended Results - Vitals Vitals: Vital Signs - 24 hr 12/07/22 12/07/22 12/07/22 02:48 02:52 03:05 Temperature 36.8 C Heart Rate 129 H 132 H 118 H Respiratory 22 13 18 Rate Blood Pressure 157/108 H 157/108 H 124/82 H O2 Saturation 97 100 100 12/07/22 12/07/22 12/07/22 03:26 03:35 03:41 Temperature Heart Rate 125 H 120 H 120 H Respiratory 20 19 14 Rate Blood Pressure 136/98 H 136/98 H 117/78 O2 Saturation 99 96 99 12/07/22 12/07/22 12/07/22 03:46 03:59 04:30 Temperature Heart Rate 119 H 115 H 125 H Respiratory 16 16 17 Rate Blood Pressure 125/87 H 128/82 H 121/86 H O2 Saturation 99 99 97 12/07/22 12/07/22 05:00 05:30 Temperature Heart Rate 120 H 114 H Respiratory 16 19 Rate Blood Pressure 117/85 H 125/69 O2 Saturation 98 99 Oxygen O2 Source Room air - EKG (time done) 0250 Rate: Rate (enter#) (127) Rhythm: Atrial fibrillation 0312 Rate: Rate (enter#) (119) Rhythm: Other (ectopic atrial tachycardia) - Labs Labs: Laboratory Tests 12/07/22 12/07/22 12/07/22 02:54 02:54 02:54 WBC 6.1 RBC 5.43 H Hgb 14.2 Hct 45.9 MCV 84.5 MCH 26.2 L MCHC 30.9 L RDW 15.8 H Plt Count 228 MPV 10.5 Neut # (Auto) 3.3 Lymph # (Auto) 2.1 [place] # (Auto) 0.4 Eos # (Auto) 0.2 Baso # (Auto) 0.1 Absolute Nucleated RBC 0.00 Nucleated RBC % 0.0 Sodium 136 Potassium 4.2 Chloride 103 Carbon Dioxide 21 Anion Gap 12.0 BUN 16 Creatinine 0.8 Estimated GFR (MDRD) 73 L Glucose 103 H Calcium 9.3 Total Bilirubin 0.8 AST 40 ALT 34 Alkaline Phosphatase 65 Troponin I High Sens 20.9 H* Total Protein 6.6 L Albumin 3.8 Globulin 2.8 Albumin/Globulin Ratio 1.4 Lipase 31 TSH Free T4 Thyroxine (T4) Free T3 pg/mL Total T3 12/07/22 12/07/22 02:54 02:54 WBC RBC Hgb Hct MCV MCH MCHC RDW Plt Count MPV Neut # (Auto) Lymph # (Auto) [place] # (Auto) Eos # (Auto) Baso # (Auto) Absolute Nucleated RBC Nucleated RBC % Sodium Potassium Chloride Carbon Dioxide Anion Gap BUN Creatinine Estimated GFR (MDRD) Glucose Calcium Total Bilirubin AST ALT Alkaline Phosphatase Troponin I High Sens Total Protein Albumin Globulin Albumin/Globulin Ratio Lipase TSH 5.75 H Free T4 1.05 Thyroxine (T4) 10.50 Free T3 pg/mL 3.15 Total T3 1.10 PD Medical Decision Making - ED course ED course: 62yF with pmh atrial arrhythmia s/p ablation p/w palpitations tonight. After taking 30mg of her PO home cardizem, she was found initially in the field to be in SVT with HR 238, converting to a fib with HR 121 en route. On arrival patient was in afib at 127, received 20mg IV cardizem X 2 followed by 1g procainamide over an hour. Patient now appears to be in ectopic atrial tachycardia. Plan is to admit to observation for TTE and if she is free of LA thrombus, potential cardioversion. d/w patient who is agreeable. Note that our banquet houseperson says there are no beds available. I did initially discuss plan with telehealth but since there are no beds available will hold off on admission. Patient is back in afib as of 6am. initiating diltiazem drip at this time. patient was updated as to plan. Plan to endorse to daytime ED MD Dr. Mcgill pending echocardiogram. Departure - Departure Disposition: ED Place in Observation Clinical Impression: Ectopic atrial tachycardia Condition: Stable
[2022-12-07] MEDS: diltiaZEM INJ 5 MG/ML VIAL IVP STA ×2 (02:58→03:35)
[2022-12-07] MEDS ORDERED: diltiaZEM INJ 5 MG/ML VIAL ONE ×2 (02:58→05:52)
[2022-12-07 03:02] LABS: BASOPHILS # (AUTO) 0.1 10^3/uL (0.0-0.1); BASOPHILS % (AUTO) 1.2 %; EOSINOPHILS # (AUTO) 0.2 10^3/uL (0.0-0.7); EOSINOPHILS % (AUTO) 3.3 %; HCT - HEMATOCRIT 45.9 % (37.0-47.0); HGB - HEMOGLOBIN 14.2 g/dL (12.0-16.0); LYMPHOCYTES # (AUTO) 2.1 10^3/uL (1.5-3.5); LYMPHOCYTES % (AUTO) 34.7 %; MEAN CORPUSCULAR HEMOGLOBIN 26.2 pg (27.0-31.0); MEAN CORPUSCULAR HGB CONC 30.9 g/dL (32.0-36.0); MEAN CORPUSCULAR VOLUME 84.5 fL (81.0-99.0); MEAN PLATELET VOLUME 10.5 fL (7.9-10.8); MONOCYTES # (AUTO) 0.4 10^3/uL (0.0-1.0); MONOCYTES % (AUTO) 6.3 %; NEUTROPHILS # (AUTO) 3.3 10^3/uL (1.5-6.6); NEUTROPHILS % (AUTO) 54.2 %; PLT - PLATELET COUNT 228 10^3/uL (130-450); RED BLOOD COUNT 5.43 10^6/uL (4.20-5.40); RED CELL DISTRIBUTION WIDTH 15.8 % (12.0-15.0); WHITE BLOOD COUNT 6.1 x10^3/uL (4.8-10.8)
[2022-12-07 03:34] LABS: T4 (THYROXINE) 10.5 ug/dL (6.09-12.23)
[2022-12-07 03:37] LABS: ALBUMIN 3.8 g/dL (3.2-5.5); ALBUMIN/GLOBULIN RATIO 1.4 (1.0-2.2); BILIRUBIN,TOTAL 0.8 mg/dL (0.2-1.0); CALCIUM 9.3 mg/dL (8.5-10.3); CREATININE 0.8 mg/dL (0.4-1.0); POTASSIUM 4.2 mmol/L (3.5-5.0); THYROID STIMULATING HORMONE 5.75 uIU/mL (0.34-5.60); TOTAL PROTEIN 6.6 g/dL (6.7-8.2)
[2022-12-07 03:38] LABS: FREE T3 3.15 pg/mL (2.5-3.9)
[2022-12-07 03:39] LABS: FREE T4 (FREE THYROXINE) 1.05 ng/dL (0.58-1.64)
[2022-12-07] MEDS ORDERED: PROCAINAMIDE 1,000 MG/10 ML SYRINGE ONE (03:47)
[2022-12-07] MEDS: PROCAINAMIDE 1,000 MG in SODIUM CHLORIDE 0.9% 240 ML IV STA (03:50)
[2022-12-07] MEDS: diltiaZEM INJ 125 MG in DEXTROSE 5% 100 ML IV STA (06:07)
[2022-12-07] MEDS: ENOXAPARIN 100 MG/ML SYRINGE SUBQ STA (07:16)
--- NOTE | 2022-12-07 08:11 | XRAY Report ---
PROCEDURE: Chest 1 View X-Ray INDICATIONS: Chest Pain TECHNIQUE: One view of the chest was acquired. COMPARISON: 07/27/2013. FINDINGS: Surgical changes and devices: None. Lungs and pleura: No pleural effusions or pneumothorax. Lungs are clear. Mediastinum: Mediastinal contours appear normal. Heart size is normal. Bones and chest wall: No suspicious bony lesions. Overlying soft tissues appear unremarkable. IMPRESSION: No acute cardiopulmonary pathology. No discrepancies from preliminary readings. Reviewed by: Enoch Gaspar MD on 12/07/2022 8:09 AM PST Approved by: Enoch Gaspar MD on 12/07/2022 8:09 AM [facility] Station ID: [id number]
[2022-12-07] MEDS: diltiaZEM CD 120 MG CAPSULE PO STA (08:29)
[2022-12-07] MEDS: MIDAZOLAM 10 MG/2 ML VIAL IVP STA (08:46)
[2022-12-07 10:07] VITALS: BP 102/73
--- NOTE | 2022-12-08 14:33 | ED Physician Documentation ---
ED Addendum - Addendum Addendum: 12/08/22 14:33 Total procedural sedation time 20 min.
== END 2022-12-07 10:15 | disposition home or self-care (01) ==
LOC: EDUNIT# → EDBD → ED 02:42
DX: I47.1 Supraventricular tachycardia (principal); I48.0 Paroxysmal atrial fibrillation
CPT/HCPCS: 36415; 71045; 80053; 83690; 84436; 84439; 84443; 84480; 84481; 84484; 85025; 92960; 93005; 96365; 96366; 96367; 96372; 96375; 96376; 99152; 99284; 99285; J1650; J2250; J2690; 94770

== ENCOUNTER 2023-03-04 11:05 | Outpatient (CLI) | payer OTHER ==
[2023-03-04 14:57] LABS: BASOPHILS # (AUTO) 0.1 10^3/uL (0.0-0.1); BASOPHILS % (AUTO) 1.5 %; EOSINOPHILS # (AUTO) 0.2 10^3/uL (0.0-0.7); EOSINOPHILS % (AUTO) 4.2 %; HGB - HEMOGLOBIN 13.7 g/dL (12.0-16.0); LYMPHOCYTES # (AUTO) 1.5 10^3/uL (1.5-3.5); LYMPHOCYTES % (AUTO) 29.5 %; MEAN CORPUSCULAR HEMOGLOBIN 26.6 pg (27.0-31.0); MEAN CORPUSCULAR HGB CONC 30.4 g/dL (32.0-36.0); MEAN CORPUSCULAR VOLUME 87.4 fL (81.0-99.0); MEAN PLATELET VOLUME 11.3 fL (7.9-10.8); MONOCYTES # (AUTO) 0.4 10^3/uL (0.0-1.0); MONOCYTES % (AUTO) 6.8 %; NEUTROPHILS % (AUTO) 57.8 %; PLT - PLATELET COUNT 234 10^3/uL (130-450); RED BLOOD COUNT 5.15 10^6/uL (4.20-5.40); RED CELL DISTRIBUTION WIDTH 15.9 % (12.0-15.0); WHITE BLOOD COUNT 5.2 x10^3/uL (4.8-10.8)
[2023-03-04 15:45] LABS: THYROID STIMULATING HORMONE 2.35 uIU/mL (0.34-5.60)
[2023-03-04 16:03] LABS: ALBUMIN/GLOBULIN RATIO 1.2 (1.0-2.2); BILIRUBIN,TOTAL 0.5 mg/dL (0.2-1.0); CALCIUM 9.4 mg/dL (8.5-10.3); CREATININE 0.7 mg/dL (0.4-1.0); TOTAL PROTEIN 7.3 g/dL (6.7-8.2)
[2023-03-04 16:07] LABS: CHOL/HDL RATIO 5.6 (<4.4); CHOLESTEROL 271 mg/dL; HDL CHOLESTEROL 48 mg/dL; LDL CHOLESTEROL,CALCULATED 177 mg/dL; LDL/HDL RATIO 3.7 (<4.4); TRIGLYCERIDES 230 mg/dL; VLDL CHOLESTEROL 46 mg/dL
== END 2023-03-04 11:06 | disposition home or self-care (01) ==
LOC: LAB.S 11:05
PROVIDERS: ATTEND Registered Nurse
DX: E78.5 Hyperlipidemia, unspecified (principal); Z79.899 Other long term (current) drug therapy; E03.9 Hypothyroidism, unspecified
CPT/HCPCS: 36415; 80053; 80061; 83721; 84443; 85025

== ENCOUNTER 2023-05-12 08:43 | Outpatient (CLI) | payer OTHER ==
[2023-05-12 15:09] LABS: HCT - HEMATOCRIT 43.1 % (37.0-47.0); HGB - HEMOGLOBIN 13.3 g/dL (12.0-16.0); MEAN CORPUSCULAR HEMOGLOBIN 26.9 pg (27.0-31.0); MEAN CORPUSCULAR HGB CONC 30.9 g/dL (32.0-36.0); MEAN CORPUSCULAR VOLUME 87.1 fL (81.0-99.0); MEAN PLATELET VOLUME 11.2 fL (7.9-10.8); RED BLOOD COUNT 4.95 10^6/uL (4.20-5.40); RED CELL DISTRIBUTION WIDTH 15.8 % (12.0-15.0); WHITE BLOOD COUNT 4.7 x10^3/uL (4.8-10.8)
[2023-05-12 15:47] LABS: CALCIUM 9.3 mg/dL (8.5-10.3); CREATININE 0.9 mg/dL (0.6-1.3); POTASSIUM 3.9 mmol/L (3.5-4.5)
== END 2023-05-12 08:44 | disposition home or self-care (01) ==
LOC: LAB.S 08:43
PROVIDERS: ATTEND Internal Medicine Clinical Cardiac Electrophysiology
DX: I47.1 Supraventricular tachycardia (principal)
CPT/HCPCS: 36415; 80048; 85027